=== PATIENT | female | born 2005 | race Caucasian/White ===

== ENCOUNTER → 2024-06-14 | Day surgery (SDC) | payer OTHER ==
[~2024-06-14] VITALS: Ht 170.2 cm; Wt 104.3 kg
[~2024-06-14] MED LIST: CLINDAMYCIN 900 MG in IV 1 EA IV ONE; FAMO1TAB11 PO
== END | disposition home or self-care (01) ==
LOC: M SDC 11:03
PROVIDERS: ATTEND Dentist
DX: K02.9 Dental caries, unspecified (principal); Z53.09 Procedure and treatment not carried out because of other contraindication

== ENCOUNTER 2024-07-19 09:07 | Day surgery (SDC) | payer OTHER ==
[~2024-07-19] VITALS: Ht 170.2 cm; Wt 115.7 kg
[~2024-07-19 09:07] MED LIST changes: -CLINDAMYCIN 900 MG in IV 1 EA IV ONE
[2024-07-19] MEDS ORDERED: ROCURONIUM BROMIDE 50MG/5ML VIAL As Ordered ONE (11:45)
[2024-07-19] MEDS ORDERED: LIDOCAINE 2% 100MG/5ML SDV (FOR ANES.) As Ordered ONE (11:45)
[2024-07-19] MEDS ORDERED: SUGAMMADEX SODIUM 500 MG/5 ML VIAL (BRIDION) As Ordered ONE (11:45)
[2024-07-19] MEDS ORDERED: MIDAZOLAM INJ 2MG/2ML VIAL As Ordered ONE (11:45)
[2024-07-19] MEDS ORDERED: ACETAMINOPHEN 1000MG/100ML IV BAG As Ordered ONE (11:45)
[2024-07-19] MEDS ORDERED: propofoL 200 MG/20 ML VIAL As Ordered ONE (11:45)
[2024-07-19] MEDS ORDERED: ONDANSETRON 4MG 2ML VIAL As Ordered ONE (11:45)
[2024-07-19] MEDS ORDERED: fentaNYL 100 MCG/2 ML INJECTION As Ordered ONE (11:45)
[2024-07-19] MEDS ORDERED: ESMOLOL INJ 100MG/10ML VIAL As Ordered ONE (11:54)
[2024-07-19] MEDS ORDERED: SCOPOLAMINE 1MG TRANSDERMAL PATCH TOP ONE (12:05)
[2024-07-19] MEDS ORDERED: NS 1,000 ML IV SCH ×2 (12:10→13:25)
[2024-07-19] MEDS: CLINDAMYCIN 900 MG in IV 1 EA IV ONE (12:40)
[2024-07-19] MEDS: LIDOCAINE 2% W/ EPINEPHRINE 1.7 ML DENTAL INJ As Ordered ONE (12:58)
[2024-07-19] MEDS ORDERED: dexmedeTOMIDine (4MCG/ML)200MCG/50ML BTL (PRECEDEX) As Ordered ONE (13:00)
[2024-07-19] MEDS ORDERED: KETOROLAC 60MG 2ML VIAL As Ordered ONE (13:14)
[2024-07-19] MEDS ORDERED: oxyCODONE 5MG TAB PO PRN (13:25)
[2024-07-19] MEDS ORDERED: fentaNYL 100 MCG/2 ML INJECTION IV PRN (13:25)
[2024-07-19] MEDS ORDERED: HYDROMORPHONE HCL 0.5 MG/ 0.5 ML SYRINGE IV PRN (13:25)
[2024-07-19] MEDS ORDERED: ONDANSETRON 4MG 2ML VIAL IV PRN (13:25)
[2024-07-19 15:30] VITALS: BP 124/80; TEMP 98.1; O2SAT 98
== END 2024-07-19 15:41 | disposition home or self-care (01) ==
LOC: M SDC 09:07
PROVIDERS: ATTEND Dentist
DX: K02.9 Dental caries, unspecified (principal); F40.232 Fear of other medical care; Z88.0 Allergy status to penicillin; F17.290 Nicotine dependence, other tobacco product, uncomplicated
CPT/HCPCS: 81025; 88300; C9290; D7210; J0131; J0737; J1100; J1805; J1885; J2250; J2405; J3010